=== PATIENT | female | born 1955 | race Caucasian/White ===

== ENCOUNTER 2017-08-16 20:25 | Emergency (ER) | payer OTHER ==
[~2017-08-16] VITALS: Ht 160 cm; Wt 59.1 kg
[2017-08-16] MEDS ORDERED: GABA-531 PO (20:33)
[2017-08-16] MEDS: KETOROLAC TROMETHAMINE 30 MG/ML VIAL IM ONE (21:28)
[2017-08-16 22:38] VITALS: BP 134/81
== END 2017-08-16 22:44 | disposition home or self-care (01) ==
LOC: EMS 21:30
DX: M54.31 Sciatica, right side (principal); M19.90 Unspecified osteoarthritis, unspecified site; I25.10 Atherosclerotic heart disease of native coronary artery without angina pectoris; F17.210 Nicotine dependence, cigarettes, uncomplicated; F14.90 Cocaine use, unspecified, uncomplicated
CPT/HCPCS: 96372; 99283; J1885

== ENCOUNTER 2018-09-15 14:01 | Emergency (ER) | payer OTHER ==
[~2018-09-15] VITALS: Ht 160 cm; Wt 50.0 kg
[~2018-09-15 14:01] MED LIST: AMIO200T44 PO; APIX5TAB PO; CEPH500 PO; DSS100 PO; FURO20 PO; GABA-531 PO; METO50 PO
[2018-09-15] MEDS: CEPHALEXIN MONOHYDRATE 500 MG CAPSULE PO ONE (17:45)
[2018-09-15] MEDS: ACETAMINOPHEN 500 MG TABLET PO ONE (17:45)
[2018-09-15] MEDS: SULFAMETHOX/TRIMETH DS 800-160 MG/TABLET PO ONE (17:45)
[2018-09-15 18:18] VITALS: BP 110/71
== END 2018-09-15 18:19 | disposition home or self-care (01) ==
LOC: EMS 14:02
DX: L03.317 Cellulitis of buttock (principal); J45.909 Unspecified asthma, uncomplicated; I11.0 Hypertensive heart disease with heart failure; I50.9 Heart failure, unspecified; I25.10 Atherosclerotic heart disease of native coronary artery without angina pectoris; M19.90 Unspecified osteoarthritis, unspecified site; F20.9 Schizophrenia, unspecified; F17.210 Nicotine dependence, cigarettes, uncomplicated; Z79.899 Other long term (current) drug therapy
CPT/HCPCS: 99406

== ENCOUNTER 2020-05-08 08:28 | Emergency (ER) | payer OTHER ==
[~2020-05-08] VITALS: Ht 160 cm; Wt 61.4 kg
[~2020-05-08 08:28] MED LIST changes: +ACID1TAB8 PO; +ALBU8HFA IH; -AMIO200T44 PO; +AMIO200T68 PO; +AZIT-84 PO; -CEPH500 PO; +GABA-1181 PO; -GABA-531 PO; +LOSA25TA21 PO; +METO25XL PO; -METO50 PO; +MULT1TAB61 PO; +PANT-31 PO; +PRED10 PO; +PRED20 PO; +THIAMINE HCL100 MG PO; +UMEC62.5
[2020-05-08] MEDS ORDERED: AMIT75 PO (08:38)
[2020-05-08] MEDS ORDERED: SPIR25 PO (08:38)
[2020-05-08] MEDS ORDERED: ASPI81TA39 PO (08:38)
[2020-05-08] MEDS ORDERED: LOSA25TA21 PO (08:38)
[2020-05-08] MEDS ORDERED: CARV6 PO (08:38)
[2020-05-08] MEDS ORDERED: LEVE250T55 PO ×2 (08:38)
[2020-05-08 08:39] VITALS: BP 123/52
== END 2020-05-08 11:18 | disposition left against medical advice (07) ==
LOC: EMS 10:02
DX: R06.02 Shortness of breath (principal); Z53.21 Procedure and treatment not carried out due to patient leaving prior to being seen by health care provider
CPT/HCPCS: 93005